=== PATIENT | male | born 1990 | race Caucasian/White ===

== ENCOUNTER → 2024-07-23 09:59 | Outpatient (REF) | payer OTHER, SELFPAY | LOC: DHSLP 09:59 | PROVIDERS: ATTENDING PHYSICIAN Internal Medicine | DX: G47.33 Obstructive sleep apnea (adult) (pediatric) (principal) | CPT/HCPCS: 95800 ==

== ENCOUNTER → 2024-10-11 13:01 | Outpatient (REF) | payer OTHER, SELFPAY | LOC: HWRAD 13:01 | PROVIDERS: ATTENDING PHYSICIAN Physician Assistant | DX: R05.8 Other specified cough (principal) | CPT/HCPCS: 71046 ==